=== PATIENT | male | born 1945 | race Two or more races ===

== ENCOUNTER 2016-07-26 08:00 | Inpatient (IN) | payer OTHER ==
[~2016-07-26] VITALS: Ht 165.1 cm; Wt 96.9 kg
[2016-07-26] VITALS (36 sets, daily range): BP systolic 107–168; BP diastolic 58–89; PULSE 48–90; RESP 10–21; Ht 165.1 cm; Wt 96.9 kg
[~2016-07-26 08:00] MED LIST: CEFAZOLIN 1 GM INJ ONE; ROCURONIUM 50 MG INJ ONE
[2016-07-26] MEDS ORDERED: ASPI81TA3 PO (09:18)
[2016-07-26] MEDS ORDERED: TRANEXAMIC ACID 1,000 MG in SOD CHLORIDE 0.9% 100 ML IV ONE (09:30)
[2016-07-26] MEDS ORDERED: METF500T4 PO (09:37)
[2016-07-26] MEDS ORDERED: BENA40TA41 PO (09:39)
[2016-07-26] MEDS ORDERED: HYD25 PO (09:39)
--- NOTE | 2016-07-26 10:31 | HPN ---
Date/Time of Note Date/Time of Note DATE: 07/26/16 TIME: 10:31 Interval H&P Admission Note Pt. seen H&P reviewed: No system changes KAYLEIGH MARTINEZ MD Jul 26, 2016 10:31
[2016-07-26] MEDS ORDERED: LIDOCAINE 2% (SDV) 5 ML INJ ONE (10:45)
[2016-07-26] MEDS ORDERED: PROPOFOL 20 ML ONE (10:45)
[2016-07-26] MEDS ORDERED: FENTAnyl 50 MCG/ML VIAL ONE (10:50)
[2016-07-26] MEDS ORDERED: MIDAZOLAM 1 MG/ML 2 ML INJ ONE (10:50)
[2016-07-26] MEDS ORDERED: POLYMYXIN/BACITRACIN 1L IRRIG IRR ONE (11:30)
[2016-07-26] MEDS ORDERED: NEOSTIGMINE 3 MG/3 ML SYRINGE ONE (13:25)
[2016-07-26] MEDS ORDERED: GLYCOPYRROLATE 0.4 MG INJ ONE (13:25)
[2016-07-26] MEDS: HYDROmorphONE 0.2 MG/ML PCA IV SCH ×2 (14:25→21:38)
[2016-07-26] MEDS ORDERED: KETOROLAC 30 MG INJ IV PRN (14:30)
[2016-07-26] MEDS: CEFAZOLIN 1 GM/50 ML (PMX) 50 ML IVPB SCH ×2 (14:30→22:44)
[2016-07-26] MEDS ORDERED: MEPERIDINE 25 MG INJ IV PRN (14:30)
[2016-07-26] MEDS ORDERED: HYDROmorphONE (0.2 MG/ML) 10ML SYG IV PRN ×3 (14:30)
[2016-07-26] MEDS ORDERED: KETOROLAC 15 MG INJ IV PRN (14:30)
[2016-07-26] MEDS ORDERED: NALOXONE (0.4 MG/ML) INJ IV PRN ×2 (14:30)
[2016-07-26] MEDS ORDERED: ONDANSETRON 4 MG INJ IV PRN (14:30)
[2016-07-26] MEDS ORDERED: LABETALOL HCL 20MG INJ IV PRN (14:30)
[2016-07-26] MEDS ORDERED: DIPHENHYDRAMINE 50 MG INJ IV PRN ×2 (14:30)
[2016-07-26] MEDS ORDERED: SENNA/DOCUSATE NA (8.6MG/50MG) TAB PO PRN (14:30)
[2016-07-26] MEDS ORDERED: hydrALAzine 20 MG INJ IV PRN (14:30)
[2016-07-26] MEDS ORDERED: ZOLPIDEM 5 MG TAB PO PRN (14:30)
[2016-07-26] MEDS ORDERED: INSULIN ASPART [NOVOLOG] 3 ML PEN SC ONE (14:30)
[2016-07-26] MEDS ORDERED: ASPIRIN (EC) 325 MG TAB PO ONE (14:30)
[2016-07-26] MEDS ORDERED: DOCUSATE SODIUM 100 MG CAP PO ONE (14:30)
[2016-07-26] MEDS ORDERED: OXYCODONE/ACETAMINOPHEN (5/325) TAB PO PRN ×2 (14:30)
[2016-07-26] MEDS ORDERED: FENTAnyl 50 MCG/ML VIAL IV PRN ×3 (14:30)
[2016-07-26] MEDS ORDERED: EPHEDrine SULFATE 50 MG/5 ML SYG IV PRN (14:30)
[2016-07-26] MEDS ORDERED: MAGNESIUM HYDROXIDE 30ML CUP PO PRN (14:30)
--- NOTE | 2016-07-26 14:43 | OPR ---
DATE OF OPERATION: 07/26/2016 PREOPERATIVE DIAGNOSIS: Right knee osteoarthritis. POSTOPERATIVE DIAGNOSIS: Right knee osteoarthritis. OPERATION PERFORMED: Right total knee replacement. SURGEON: Kody Garcia MD COMMERCIAL CONSTRUCTION PROJECT MANAGER: MARV Preston ANESTHESIA: General endotracheal anesthesia with spinal anesthetic and adductor canal block. ANESTHESIOLOGIST: Dr. Baker IMPLANTS USED: Howard Triathlon implants, femur size 4, tibia size 4, asymmetric patella size 38 m m and a 13-mm all poly insert. INDICATION FOR PROCEDURE: Mr. Reggie Dao is a 71-year-old male who has previously undergone a succe ssful left total knee replacement. He has continued to have pain in his right knee, has failed nono perative treatment, and now presents for elective right total knee replacement. Risks and benefits were discussed with the patient, the risks including, but not limited to, infecti on, bleeding, blood clots, fracture, nerve damage, blood vessel damage, knee stiffness, dislocation, along with other medical, anesthetic and surgical complications, were discussed. Informed consent was obtained. DESCRIPTION OF PROCEDURE: The patient's correct extremity was identified in the preoperative area. He was brought back to the operating room, where he had preoperative antibiotics and spinal anesthe tic. He then had general endotracheal anesthesia. The right lower extremity was prepped and draped in a standard sterile manner. A timeout was performed. Esmarch was used. A thigh tourniquet was inflated to 250 mmHg. I then made a standard midline incision for approach to the knee. I went thro ugh the skin and subcutaneous tissue and made a medial parapatellar arthrotomy, flexed the knee, mad e an entry hole in the distal femur and put in an intramedullary wilder. I made my distal femoral cut. I then used my secondary cutting guide and marked the rotation at 3 degrees of external rotation a nd made my anterior and posterior chamfer cuts. I then turned my attention to the tibia. I used a posterior PCL guide, along with right angle retrac tors. I then proceeded to make my tibial cut while protecting the medial, lateral and posterior str uctures. At this point I took out the remaining meniscus. I took out the posterior osteophytes. I did take out a medial osteophyte as well. I subperiosteally elevated the MCL off the proximal medi al tibia to balance the knee. I then had full range of motion using a 13 insert. I then turned my attention to the patella. Using an over the top cutting guide, I cut the pat ingrid to the appropriate thickness. I then sized the patella. I then made the peg holes for an asym metric 38 patella. The patella tracked well, without any external pressure. At this point I turned my attention to the femur. I made the peg holes through the femoral trial. I then punched the tibia. I then took out all trial instruments, thoroughly irrigated the bony surfa roni, dried them with a lap sponge. I then proceeded to cement a size 4 tibia, a size 4 femur, an as ymmetric 38 patellar and a trial insert was used until the cement hardened. After the cement harden ed, I let down the tourniquet to obtain adequate hemostasis, thoroughly irrigated the knee joint. I then impacted the all poly 13 insert until it locked into place. At this point, I put a deep drain in for drainage. I closed the medial parapatellar arthrotomy with interrupted #1 Vicryl. The subcu taneous tissue was closed with 2-0 Vicryl, the skin with tommy. The foot was warm, with a 2+ dors lawanda pedis pulse at the end of the case. The patient was then extubated and transported to the [facility] very in stable condition. Dictated By: KODY GARCIA MD, RA/FLORIAN Conf#: [id number] DID#: [id number]
--- NOTE | 2016-07-26 15:53 | RADRPT ---
PROCEDURE: XR right knee. CLINICAL INDICATION: Total knee replacement. TECHNIQUE: AP and lateral views are available for review. COMPARISON: No comparison available FINDINGS: There is a postoperative total knee replacement. There is no evidence of loosening of the prosthesis . There is no evidence of hardware failure. The osseous structures are normal in mineralization, arc hitecture and alignment No acute fracture or dislocation is seen.No osseous lesions are identified. There are postoperative soft tissue changes. [address] IMPRESSION: Unremarkable postoperative total knee replacement. Postoperative soft tissue changes RPTAT: HGDB .Jonn Price MD, Date Time Electronically viewed and signed by .Jonn Price MD, on 07/26/2016 15:52 .B/
[2016-07-26] MEDS: SOD CHLORIDE 0.9% 1,000 ML IV SCH (16:41)
[2016-07-26] MEDS: INSULIN ASPART [NOVOLOG] 3 ML PEN SC SCH ×2 (17:55→21:27)
[2016-07-26] MEDS ORDERED: Discontinue Glyburide, Glipizide, and/or Glimepiride prior to starting Insulin XX ONE (18:00)
[2016-07-26] MEDS ORDERED: GLUCAGON 1 MG INJ IM PRN (18:00)
[2016-07-26] MEDS ORDERED: HYPOGLYCEMIA PROTOCOL when Glucose is <70 mg/dL or symptomatic <90 mg/dL. XX ONE (18:00)
[2016-07-26] MEDS ORDERED: DEXTROSE 50% 50 ML SYRINGE IV PRN ×2 (18:00)
[2016-07-26] MEDS ORDERED: GLUCOSE GEL 15 GRAM TUBE PO PRN ×2 (18:00)
[2016-07-26] MEDS ORDERED: GLUCOSE GEL 15 GRAM TUBE BUCCAL PRN (18:00)
--- NOTE | 2016-07-26 18:56 | HP ---
DATE OF ADMISSION: 07/26/2016 CHIEF COMPLAINT AND HISTORY OF PRESENT ILLNESS: The patient is a 71-year-old gentleman with a histo ry of hypertension, diabetes, osteoarthritis bilateral knee joints who underwent left knee replaceme nt approximately 3 years ago which was done by Dr. Garcia. The patient has been following up wit h him for further care. The patient has been brought in to the hospital today for right total knee replacement. The patient is being admitted for further care. The patient denied any chest pain or shortness of breath. No reported recent fall. No reported fever or chills. No known history of co ronary artery disease. No history of vomiting or diarrhea. No history of dizziness or syncope. REVIEW OF SYSTEMS: Other than postoperative pain, the rest of review of systems were unremarkable. PAST SURGICAL HISTORY: As stated above, the patient is status post left total knee replacement appr oximately 3 years ago. SOCIAL HISTORY: No smoking, no alcohol. ALLERGIES: NONE. FAMILY HISTORY: Noncontributory. PHYSICAL EXAMINATION: GENERAL: The patient is conscious, awake, alert, fairly oriented. VITAL SIGNS: Temperature 98.2, pulse 69, respirations 18, blood pressure 138/78, O2 saturation 97% on 2 liters nasal cannula. HEENT: Atraumatic, normocephalic. Conjunctivae and lids normal. Oropharynx clear. NECK: Supple. No mass, no thyromegaly. CHEST: Fairly clear. CARDIOVASCULAR: S1, S2 normal. No murmur. ABDOMEN: Soft, nondistended, nontender. EXTREMITIES: No pedal edema. Pedal pulses palpable. SKIN: Without acute rash. NEUROLOGIC: The patient is awake, alert, fairly oriented. Detailed neurological examination was de ferred due to recent surgery. LABORATORY DATA: Random glucose 181. BUN 18, creatinine 1.2, sodium 142, potassium 4.6. AST 29, A LT 40, alkaline phosphatase 72. WBC 8.6, hemoglobin 14.9, platelets 233. Coagulation profile prior to admission was normal. Lipid panel revealed LDL of 92. Chest x-ray unremarkable. EKG normal sinus rhythm with no acute ST changes. IMPRESSION: 1. Right knee osteoarthritis, status post right total knee replacement. 2. History of left knee osteoarthritis, status post left total knee replacement 3 years ago. 3. Hypertension. PLAN: The patient admitted on medical floor. The patient will be started on 1800 calorie ADA and w e will start him on Glucophage and sliding scale insulin. The patient will also be started on Loten sin and hydrochlorothiazide. The patient is currently on IV Dilaudid CERTIFIED NURSE AIDE for pain control. For DVT prophylaxis, the patient will be started on aspirin. For GI prophylaxis, the patient will receive Protonix. Plan of care discussed with patient's family. The patient is requesting to go to halfway facility. Further recommendations will depend on patient's hospital course, and recommenda tions from Dr. Garcia. We will request SNF placement upon discharge. The patient stated that he used to be at [facility]. We will notify case management about his choice. We will continue to follow. Dictated By: ABEL RIOS/FLORIAN Conf#: [id number] DID#: [id number]
[2016-07-26] MEDS ORDERED: ONDANSETRON 4 MG INJ ONE (19:46)
[2016-07-26] MEDS ORDERED: ACCU-CHEK XX SCH (21:00)
[2016-07-27] MEDS: ACCU-CHEK XX SCH (02:00)
[2016-07-27] MEDS: SOD CHLORIDE 0.9% 1,000 ML IV SCH ×2 (03:13→17:17)
[2016-07-27 05:09] LABS: ADD SCAN DIFF NO
[2016-07-27 05:29] LABS: INR 1.12; PROTIME 14.4 Sec (12.2-14.2); PT RATIO 1.1
[2016-07-27 05:30] LABS: PARTIAL THROMBOPLASTIN TIME 35.4 Sec (25.0-35.0)
[2016-07-27 05:39] LABS: CALCIUM 9.3 mg/dl (8.4-10.2); CREATININE 1.21 mg/dl (0.61-1.24)
[2016-07-27 05:53] LABS: BASOPHILS % 0.2 % (0.0-2.0); EOSINOPHILS % 0.1 % (0.0-7.0); HEMATOCRIT 43.3 % (42.0-52.0); HEMOGLOBIN 13.9 g/dl (14.0-18.0); LYMPHOCYTES # 1.7 10^3/ul (0.8-2.9); LYMPHOCYTES % 12.7 % (15.0-51.0); MEAN CORPUSCULAR HEMOGLOBIN 27.1 pg (29.0-33.0); MEAN CORPUSCULAR HGB CONC 32.1 g/dl (32.0-37.0); MEAN CORPUSCULAR VOLUME 84.6 fl (82.0-101.0); MONOCYTES % 7.2 % (0.0-11.0); NEUTROPHIL # 10.8 10^3/ul (1.6-7.5); NEUTROPHILS % 79.4 % (39.0-77.0); PLATELET COUNT 243 10^3/UL (140-415); RED BLOOD COUNT 5.12 10^6/ul (4.70-6.10); RED CELL DISTRIBUTION WIDTH 13.5 % (11.5-14.5); WHITE BLOOD COUNT 13.5 10^3/ul (4.8-10.8)
[2016-07-27] MEDS: PANTOPRAZOLE (EC) 40 MG TAB PO SCH (06:16)
[2016-07-27] MEDS: CEFAZOLIN 1 GM/50 ML (PMX) 50 ML IVPB SCH (06:16)
[2016-07-27 08:10] VITALS: BP 124/69; RESP 20
[2016-07-27] MEDS: metFORMIN 500 MG TAB PO SCH ×2 (09:20→17:57)
[2016-07-27] MEDS: ASPIRIN (EC) 325 MG TAB PO SCH (09:20)
[2016-07-27] MEDS: BENAZEPRIL 40 MG TAB PO SCH (09:20)
[2016-07-27] MEDS: DOCUSATE SODIUM 100 MG CAP PO SCH ×2 (09:20→20:13)
[2016-07-27] MEDS: HYDROCHLOROTHIAZIDE 25 MG TAB PO SCH (09:21)
[2016-07-27] MEDS: INSULIN ASPART [NOVOLOG] 3 ML PEN SC SCH ×4 (09:31→20:12)
[2016-07-27] MEDS: HYDROmorphONE 0.2 MG/ML PCA IV SCH ×2 (11:37→21:31)
--- NOTE | 2016-07-27 11:56 | PN ---
Date/Time of Note Date/Time of Note DATE: 07/27/16 TIME: 11:54 Assessment/Plan VTE Prophylaxis VTE Prophylaxis Intervention: SCD's, other Lines/Catheters IV Catheter Type (from Nrsg): Peripheral IV Urinary Cath still in place: No Assessment/Plan Assessment/Plan s/p Right Total Knee Replacement POD 1 Stable CPM, Gait training with PT Aspirin, SCD's for DVT prophylaxis SNF eval D/c Lawson Change Dressing tomorrow Subjective 24 Hr Interval Summary Free Text/Dictation Mild pain. Exam/Review of Systems Vital Signs Vitals Vital Signs Date Time Temp Pulse Resp B/P Pulse Ox O2 Delivery O2 Flow Rate FiO2 07/27/16 08:10 98.7 81 20 124/69 97 07/26/16 22:45 Nasal Cannula 2.0 Intake and Output 07/26/16 07/26/16 07/27/16 14:59 22:59 06:59 Intake Total 1700 ml 360 ml 510 ml Output Total 550 ml 700 ml 1090 ml Balance 1150 ml -340 ml -580 ml Exam R Knee Dressing c/d/i. Calf soft and non tender Foot warm and well perfused Intact motor and sensory function Results Result Diagram: 07/27/16 0420 07/27/16 0420 Results 24 hrs Laboratory Tests Test 07/26/16 13:34 07/26/16 17:48 07/26/16 21:24 07/27/16 01:49 Bedside Glucose 128 181 233 H 169 Test 07/27/16 04:20 07/27/16 08:19 White Blood Count 13.5 H Red Blood Count 5.12 Hemoglobin 13.9 L Hematocrit 43.3 Mean Corpuscular Volume 84.6 Mean Corpuscular Hemoglobin 27.1 L Mean Corpuscular Hemoglobin Concent 32.1 Red Cell Distribution Width 13.5 Platelet Count 243 Mean Platelet Volume 11.0 H Neutrophils % 79.4 H Lymphocytes % 12.7 L Monocytes % 7.2 Eosinophils % 0.1 Basophils % 0.2 Nucleated Red Blood Cells % 0.0 Neutrophils # 10.8 H Lymphocytes # 1.7 Monocytes # 1.0 H Eosinophils # 0.0 Basophils # 0.0 Nucleated Red Blood Cells # 0.0 Prothrombin Time 14.4 H Prothrombin Time Ratio 1.1 INR International Normalized Ratio 1.12 Activated Partial Thromboplast Time 35.4 H Sodium Level 135 Potassium Level 4.0 Chloride Level 101 Carbon Dioxide Level 27 Anion Gap 11 Blood Urea Nitrogen 16 Creatinine 1.21 Glucose Level 156 Calcium Level 9.3 Bedside Glucose 172 Medications Medications Current Medications Sodium Chloride (NS) 1,000 ml @ 80 mls/hr [id number] IV Last administered on 07/27 03:13; Admin Dose 80 MLS/HR; Start 07/26/16 at 14:00 Oxycodone HCl (Roxicodone) 20 mg Q3H PRN PO PAIN LEVEL 8-10; Start 07/29/16 at 06:00 Oxycodone HCl (Roxicodone) 10 mg Q3H PRN PO PAIN LEVEL 4-7; Start 07/29/16 at 06:00 Oxycodone HCl (Roxicodone) 5 mg Q3H PRN PO PAIN LEVEL 1-3; Start 07/29/16 at 06 :00 Ondansetron HCl (Zofran Inj) 4 mg Q4H PRN IV NAUSEA AND/OR VOMITING Last administered on 07/26/16 19:48; Admin Dose 4 MG; Start 07/27/16 at 14:30 Aspirin (Ecotrin) 325 mg QAM PO Last administered on 07/27/16 09:20; Admin Dose 325 MG; Start 07/27/16 at 09:00 Pantoprazole (Protonix Tab) 40 mg DAILY@06 PO Last administered on 07/27/16 06 :16; Admin Dose 40 MG; Start 07/27/16 at 06:00 Docusate Sodium (Colace) 200 mg BID PO Last administered on 07/27/16 09:20; Admin Dose 200 MG; Start 07/27/16 at 09:00; Stop 07/30/16 at 08:59 Senna/Docusate Sodium (Senokot-S) 2 tab BID PRN PO CONSTIPATION; Start at 14:30 Magnesium Hydroxide (Milk Of Mag) 30 ml HS PRN PO CONSTIPATION; Start 07/26/16 at 14:30 Naloxone HCl (Narcan) 0.2 mg Q2M PRN IV DECREASED REPIRATORY RATE; Start at 14:30 Hydromorphone HCl (Dilaudid CENTRAL SUPPLY SUPERVISOR) Q4PCA IV Last administered on 07/27/16 11:37 ; Admin Dose 6 MG; Start 07/26/16 at 14:30; Stop 07/29/16 at 06:00 Oxycodone/ Acetaminophen (Percocet (5/ 325)) 1 tab Q4H PRN PO PAIN LEVEL 1-5; Start 07/26/16 at 14:30; Stop 07/29/16 at 07:00 Oxycodone/ Acetaminophen (Percocet (5/ 325)) 2 tab Q4H PRN PO PAIN LEVEL 6-10; Start 07/26/16 at 14:30; Stop 07/29/16 at 07:00 Ketorolac Tromethamine (Toradol) 30 mg Q6H PRN IV SEVERE PAIN; Start 07/26/16 at 14:30; Stop 07/29/16 at 14:29 Diphenhydramine HCl (Benadryl) 25 mg Q6H PRN IV ITCHING; Start 07/26/16 at 14: 30 Miscellaneous Information 1. Discontinue CENTRAL SUPPLY SUPERVISOR... CENTRAL SUPPLY SUPERVISOR IV ; Start 07/26/16 at 14:30 Miscellaneous Information 1. Discontinue CENTRAL SUPPLY SUPERVISOR... CENTRAL SUPPLY SUPERVISOR IV ; Start 07/26/16 at 14:30 Diagnostic Test (Pha) (Accu-Chek) 1 ea 02 XX ; Start 07/27/16 at 02:00 Miscellaneous Information 1 ea NOTE XX ; Start 07/26/16 at 18:00 Glucose (Glutose) 15 gm Q15M PRN PO DECREASED GLUCOSE; Start 07/26/16 at 18:00 Glucose (Glutose) 22.5 gm Q15M PRN PO DECREASED GLUCOSE; Start 07/26/16 at 18: 00 Dextrose (D50w Syringe) 25 ml Q15M PRN IV DECREASED GLUCOSE; Start 07/26/16 at 18:00 Dextrose (D50w Syringe) 50 ml Q15M PRN IV DECREASED GLUCOSE; Start 07/26/16 at 18:00 Glucagon (Glucagen) 1 mg Q15M PRN IM DECREASED GLUCOSE; Start 07/26/16 at 18:00 Glucose (Glutose) 15 gm Q15M PRN BUCCAL DECREASED GLUCOSE; Start 07/26/16 at 18 :00 Benazepril HCl (Lotensin) 40 mg DAILY PO Last administered on 07/27/16t 09:20; Admin Dose 40 MG; Start 07/27/16 at 09:00 Hydrochlorothiazide (Hydrochlorothiazide) 25 mg DAILY PO Last administered on t 09:21; Admin Dose 25 MG; Start 07/27/16 at 09:00 KAYLEIGH MARTINEZ MD Jul 27, 2016 11:56
[2016-07-27] MEDS ORDERED: ONDANSETRON 4 MG INJ IV PRN (14:30)
[2016-07-27 19:10] VITALS: BP 133/82; RESP 20
--- NOTE | 2016-07-27 20:44 | PN ---
Date/Time of Note Date/Time of Note DATE: 07/27/16 TIME: 17:21 Assessment/Plan Lines/Catheters IV Catheter Type (from Nrsg): Peripheral IV Urinary Cath still in place: No Assessment/Plan Assessment/Plan 1. Right knee osteoarthritis, status post right total knee replacement. - per ortho - pain control 2. History of left knee osteoarthritis, status post left total knee replacement 3 years ago. 3. Hypertension. JACOB De Guzman/staff Subjective 24 Hr Interval Summary Free Text/Dictation on dilaudid TAB CARD PRESS OPERATOR- pain is well controlled, HERSON dcd. afebrile, dw staff Cardiovascular: no complaints Gastrointestinal: no complaints Genitourinary: no complaints Musculoskeletal: bone/joint pain Exam/Review of Systems Vital Signs Vitals Vital Signs Date Time Temp Pulse Resp B/P Pulse Ox O2 Delivery O2 Flow Rate FiO2 07/27/16 08:10 98.7 81 20 124/69 97 07/26/16 22:45 Nasal Cannula 2.0 Intake and Output 07/26/16 07/26/16 07/27/16 15:00 23:00 07:00 Intake Total 1700 ml 360 ml 510 ml Output Total 550 ml 700 ml 1090 ml Balance 1150 ml -340 ml -580 ml Exam Constitutional: alert, well developed Respiratory: clear to auscultation, normal air movement Cardiovascular: nl pulses, regular rate and rhythm Gastrointestinal: non-tender, soft Musculoskeletal: other (sp right knee ORIF) Neurological: other Results Result Diagram: 07/27/16 0420 07/27/16 0420 Results 24 hrs Laboratory Tests Test 07/26/16 17:48 07/26/16 21:24 07/27/16 01:49 07/27/16 04:20 Bedside Glucose 181 233 H 169 White Blood Count 13.5 H Red Blood Count 5.12 Hemoglobin 13.9 L Hematocrit 43.3 Mean Corpuscular Volume 84.6 Mean Corpuscular Hemoglobin 27.1 L Mean Corpuscular Hemoglobin Concent 32.1 Red Cell Distribution Width 13.5 Platelet Count 243 Mean Platelet Volume 11.0 H Neutrophils % 79.4 H Lymphocytes % 12.7 L Monocytes % 7.2 Eosinophils % 0.1 Basophils % 0.2 Nucleated Red Blood Cells % 0.0 Neutrophils # 10.8 H Lymphocytes # 1.7 Monocytes # 1.0 H Eosinophils # 0.0 Basophils # 0.0 Nucleated Red Blood Cells # 0.0 Prothrombin Time 14.4 H Prothrombin Time Ratio 1.1 INR International Normalized Ratio 1.12 Activated Partial Thromboplast Time 35.4 H Sodium Level 135 Potassium Level 4.0 Chloride Level 101 Carbon Dioxide Level 27 Anion Gap 11 Blood Urea Nitrogen 16 Creatinine 1.21 Glucose Level 156 Calcium Level 9.3 Test 07/27/16 08:19 07/27/16 12:43 Bedside Glucose 172 154 Medications Medications Current Medications Sodium Chloride (NS) 1,000 ml @ 80 mls/hr [id number] IV Last administered on 07/27 17:17; Admin Dose 80 MLS/HR; Start 07/26/16 at 14:00 Oxycodone HCl (Roxicodone) 20 mg Q3H PRN PO PAIN LEVEL 8-10; Start 07/29/16 at 06:00 Oxycodone HCl (Roxicodone) 10 mg Q3H PRN PO PAIN LEVEL 4-7; Start 07/29/16 at 06:00 Oxycodone HCl (Roxicodone) 5 mg Q3H PRN PO PAIN LEVEL 1-3; Start 07/29/16 at 06 :00 Ondansetron HCl (Zofran Inj) 4 mg Q4H PRN IV NAUSEA AND/OR VOMITING Last administered on 07/26/16 19:48; Admin Dose 4 MG; Start 07/27/16 at 14:30 Aspirin (Ecotrin) 325 mg QAM PO Last administered on 07/27/16 09:20; Admin Dose 325 MG; Start 07/27/16 at 09:00 Pantoprazole (Protonix Tab) 40 mg DAILY@06 PO Last administered on 07/27/16 06 :16; Admin Dose 40 MG; Start 07/27/16 at 06:00 Docusate Sodium (Colace) 200 mg BID PO Last administered on 07/27/16 09:20; Admin Dose 200 MG; Start 07/27/16 at 09:00; Stop 07/30/16 at 08:59 Senna/Docusate Sodium (Senokot-S) 2 tab BID PRN PO CONSTIPATION; Start at 14:30 Magnesium Hydroxide (Milk Of Mag) 30 ml HS PRN PO CONSTIPATION; Start 07/26/16 at 14:30 Naloxone HCl (Narcan) 0.2 mg Q2M PRN IV DECREASED REPIRATORY RATE; Start at 14:30 Hydromorphone HCl (Dilaudid TAB CARD PRESS OPERATOR) Q4PCA IV Last administered on 07/27/16t 11:37 ; Admin Dose 6 MG; Start 07/26/16 at 14:30; Stop 07/29/16 at 06:00 Oxycodone/ Acetaminophen (Percocet (5/ 325)) 1 tab Q4H PRN PO PAIN LEVEL 1-5; Start 07/26/16 at 14:30; Stop 07/29/16 at 07:00 Oxycodone/ Acetaminophen (Percocet (5/ 325)) 2 tab Q4H PRN PO PAIN LEVEL 6-10; Start 07/26/16 at 14:30; Stop 07/29/16 at 07:00 Ketorolac Tromethamine (Toradol) 30 mg Q6H PRN IV SEVERE PAIN; Start 07/26/16 at 14:30; Stop 07/29/16 at 14:29 Diphenhydramine HCl (Benadryl) 25 mg Q6H PRN IV ITCHING; Start 07/26/16 at 14: 30 Miscellaneous Information 1. Discontinue TAB CARD PRESS OPERATOR... TAB CARD PRESS OPERATOR IV ; Start 07/26/16 at 14:30 Miscellaneous Information 1. Discontinue TAB CARD PRESS OPERATOR... TAB CARD PRESS OPERATOR IV ; Start 07/26/16 at 14:30 Diagnostic Test (Pha) (Accu-Chek) 1 ea 02 XX ; Start 07/27/16 at 02:00 Miscellaneous Information 1 ea NOTE XX ; Start 07/26/16 at 18:00 Glucose (Glutose) 15 gm Q15M PRN PO DECREASED GLUCOSE; Start 07/26/16 at 18:00 Glucose (Glutose) 22.5 gm Q15M PRN PO DECREASED GLUCOSE; Start 07/26/16 at 18: 00 Dextrose (D50w Syringe) 25 ml Q15M PRN IV DECREASED GLUCOSE; Start 07/26/16 at 18:00 Dextrose (D50w Syringe) 50 ml Q15M PRN IV DECREASED GLUCOSE; Start 07/26/16 at 18:00 Glucagon (Glucagen) 1 mg Q15M PRN IM DECREASED GLUCOSE; Start 07/26/16 at 18:00 Glucose (Glutose) 15 gm Q15M PRN BUCCAL DECREASED GLUCOSE; Start 07/26/16 at 18 :00 Benazepril HCl (Lotensin) 40 mg DAILY PO Last administered on 07/27/16 09:20; Admin Dose 40 MG; Start 07/27/16 at 09:00 Hydrochlorothiazide (Hydrochlorothiazide) 25 mg DAILY PO Last administered on 09:21; Admin Dose 25 MG; Start 07/27/16 at 09:00 MORENO KOEHLER Jul 27, 2016 17:25
[2016-07-28] MEDS: ACCU-CHEK XX SCH (01:31)
[2016-07-28] MEDS: SOD CHLORIDE 0.9% 1,000 ML IV SCH ×3 (03:30→20:16)
[2016-07-28 05:08] LABS: ADD SCAN DIFF NO
[2016-07-28 05:16] LABS: BASOPHIL # 0.1 10^3/ul (0.0-0.1); BASOPHILS % 0.5 % (0.0-2.0); EOSINOPHILS # 0.1 10^3/ul (0.0-0.5); EOSINOPHILS % 0.5 % (0.0-7.0); HEMATOCRIT 42.7 % (42.0-52.0); HEMOGLOBIN 13.6 g/dl (14.0-18.0); LYMPHOCYTES # 1.8 10^3/ul (0.8-2.9); LYMPHOCYTES % 13.9 % (15.0-51.0); MEAN CORPUSCULAR HEMOGLOBIN 26.9 pg (29.0-33.0); MEAN CORPUSCULAR HGB CONC 31.9 g/dl (32.0-37.0); MEAN CORPUSCULAR VOLUME 84.4 fl (82.0-101.0); MEAN PLATELET VOLUME 10.8 fl (7.4-10.4); MONOCYTE # 1.3 10^3/ul (0.3-0.9); MONOCYTES % 9.9 % (0.0-11.0); NEUTROPHIL # 9.5 10^3/ul (1.6-7.5); NEUTROPHILS % 74.8 % (39.0-77.0); PLATELET COUNT 241 10^3/UL (140-415); RED BLOOD COUNT 5.06 10^6/ul (4.70-6.10); RED CELL DISTRIBUTION WIDTH 13.7 % (11.5-14.5); WHITE BLOOD COUNT 12.7 10^3/ul (4.8-10.8)
[2016-07-28] MEDS: PANTOPRAZOLE (EC) 40 MG TAB PO SCH (05:31)
[2016-07-28 07:17] LABS: CALCIUM 9.4 mg/dl (8.4-10.2); CREATININE 1.4 mg/dl (0.61-1.24); POTASSIUM 3.7 mmol/L (3.5-5.1)
[2016-07-28 08:37] VITALS: BP 129/79; RESP 20
[2016-07-28] MEDS: metFORMIN 500 MG TAB PO SCH ×2 (08:52→17:38)
[2016-07-28] MEDS: INSULIN ASPART [NOVOLOG] 3 ML PEN SC SCH ×4 (08:52→21:00)
[2016-07-28] MEDS: ASPIRIN (EC) 325 MG TAB PO SCH (08:52)
[2016-07-28] MEDS: DOCUSATE SODIUM 100 MG CAP PO SCH ×2 (08:52→20:11)
[2016-07-28] MEDS: BENAZEPRIL 40 MG TAB PO SCH (08:53)
[2016-07-28] MEDS: HYDROCHLOROTHIAZIDE 25 MG TAB PO SCH (08:53)
[2016-07-28] MEDS: HYDROmorphONE 0.2 MG/ML PCA IV SCH (12:07)
--- NOTE | 2016-07-28 16:28 | PN ---
Date/Time of Note Date/Time of Note DATE: 07/28/16 TIME: 16:27 Assessment/Plan Lines/Catheters IV Catheter Type (from Nrs): Peripheral IV Urinary Cath still in place: No Assessment/Plan Assessment/Plan 1. Right knee osteoarthritis, status post right total knee replacement. - per ortho - pain control 2. History of left knee osteoarthritis, status post left total knee replacement 3 years ago. 3. Hypertension. JACOB De Guzman/staff Exam/Review of Systems Vital Signs Vitals Vital Signs Date Time Temp Pulse Resp B/P Pulse Ox O2 Delivery O2 Flow Rate FiO2 07/28/16 13:00 16 07/28/16 08:37 98.5 104 129/79 100 07/26/16 22:45 Nasal Cannula 2.0 Intake and Output 07/27/16 07/27/16 07/28/16 15:00 23:00 07:00 Intake Total 1880 ml 1090 ml Output Total 50 ml 1020 ml 600 ml Balance -50 ml 860 ml 490 ml Exam Constitutional: alert, oriented, well developed Eyes: EOMI Respiratory: clear to auscultation, normal air movement Cardiovascular: nl pulses, regular rate and rhythm Gastrointestinal: non-tender, soft Musculoskeletal: other Extremities: normal pulses Neurological: nl mental status, nl speech Results Result Diagram: 07/28/1642607/28/16426 Results 24 hrs Laboratory Tests Test 07/27/16 20:11 07/28/16 04:27 07/28/16 08:33 07/28/16 09:14 Bedside Glucose 170 149 138 White Blood Count 12.7 H Red Blood Count 5.06 Hemoglobin 13.6 L Hematocrit 42.7 Mean Corpuscular Volume 84.4 Mean Corpuscular Hemoglobin 26.9 L Mean Corpuscular Hemoglobin Concent 31.9 L Red Cell Distribution Width 13.7 Platelet Count 241 Mean Platelet Volume 10.8 H Neutrophils % 74.8 Lymphocytes % 13.9 L Monocytes % 9.9 Eosinophils % 0.5 Basophils % 0.5 Nucleated Red Blood Cells % 0.0 Neutrophils # 9.5 H Lymphocytes # 1.8 Monocytes # 1.3 H Eosinophils # 0.1 Basophils # 0.1 Nucleated Red Blood Cells # 0.0 Sodium Level 135 Potassium Level 3.7 Chloride Level 98 Carbon Dioxide Level 27 Anion Gap 14 Blood Urea Nitrogen 15 Creatinine 1.40 H Glucose Level 142 Calcium Level 9.4 Test 07/28/16 12:44 Bedside Glucose 171 Medications Medications Current Medications Sodium Chloride (NS) 1,000 ml @ 80 mls/hr [id number] IV Last administered on 07/27 17:17; Admin Dose 80 MLS/HR; Start 07/26/16 at 14:00 Oxycodone HCl (Roxicodone) 20 mg Q3H PRN PO PAIN LEVEL 8-10; Start 07/29/16 at 06:00 Oxycodone HCl (Roxicodone) 10 mg Q3H PRN PO PAIN LEVEL 4-7; Start 07/29/16 at 06:00 Oxycodone HCl (Roxicodone) 5 mg Q3H PRN PO PAIN LEVEL 1-3; Start 07/29/16 at 06 :00 Ondansetron HCl (Zofran Inj) 4 mg Q4H PRN IV NAUSEA AND/OR VOMITING Last administered on 07/26/16 19:48; Admin Dose 4 MG; Start 07/27/16 at 14:30 Aspirin (Ecotrin) 325 mg QAM PO Last administered on 07/28/16 08:52; Admin Dose 325 MG; Start 07/27/16 at 09:00 Pantoprazole (Protonix Tab) 40 mg DAILY@06 PO Last administered on 07/28/16 05 :31; Admin Dose 40 MG; Start 07/27/16 at 06:00 Docusate Sodium (Colace) 200 mg BID PO Last administered on 07/28/16 08:52; Admin Dose 200 MG; Start 07/27/16 at 09:00; Stop 07/30/16 at 08:59 Senna/Docusate Sodium (Senokot-S) 2 tab BID PRN PO CONSTIPATION; Start at 14:30 Magnesium Hydroxide (Milk Of Mag) 30 ml HS PRN PO CONSTIPATION; Start 07/26/16 at 14:30 Naloxone HCl (Narcan) 0.2 mg Q2M PRN IV DECREASED REPIRATORY RATE; Start at 14:30 Hydromorphone HCl (Dilaudid SOIL EXPERT) Q4PCA IV Last administered on 07/28/16 12:07 ; Admin Dose 6 MG; Start 07/26/16 at 14:30; Stop 07/29/16 at 06:00 Oxycodone/ Acetaminophen (Percocet (5/ 325)) 1 tab Q4H PRN PO PAIN LEVEL 1-5; Start 07/26/16 at 14:30; Stop 07/29/16 at 07:00 Oxycodone/ Acetaminophen (Percocet (5/ 325)) 2 tab Q4H PRN PO PAIN LEVEL 6-10; Start 07/26/16 at 14:30; Stop 07/29/16 at 07:00 Diphenhydramine HCl (Benadryl) 25 mg Q6H PRN IV ITCHING; Start 07/26/16 at 14: 30 Miscellaneous Information 1. Discontinue SOIL EXPERT... SOIL EXPERT IV ; Start 07/26/16 at 14:30 Miscellaneous Information 1. Discontinue SOIL EXPERT... SOIL EXPERT IV ; Start 07/26/16 at 14:30 Diagnostic Test (Pha) (Accu-Chek) 1 ea 02 XX ; Start 07/27/16 at 02:00 Miscellaneous Information 1 ea NOTE XX ; Start 07/26/16 at 18:00 Glucose (Glutose) 15 gm Q15M PRN PO DECREASED GLUCOSE; Start 07/26/16 at 18:00 Glucose (Glutose) 22.5 gm Q15M PRN PO DECREASED GLUCOSE; Start 07/26/16 at 18: 00 Dextrose (D50w Syringe) 25 ml Q15M PRN IV DECREASED GLUCOSE; Start 07/26/16 at 18:00 Dextrose (D50w Syringe) 50 ml Q15M PRN IV DECREASED GLUCOSE; Start 07/26/16 at 18:00 Glucagon (Glucagen) 1 mg Q15M PRN IM DECREASED GLUCOSE; Start 07/26/16 at 18:00 Glucose (Glutose) 15 gm Q15M PRN BUCCAL DECREASED GLUCOSE; Start 07/26/16 at 18 :00 Benazepril HCl (Lotensin) 40 mg DAILY PO Last administered on 07/28/16t 08:53; Admin Dose 40 MG; Start 07/27/16 at 09:00 MORENO KOEHLER Jul 28, 2016 16:28
[2016-07-28 19:25] VITALS: BP 145/91; RESP 20
[2016-07-28 20:30] VITALS: BP 137/82; PULSE 95
[2016-07-29] MEDS: ACCU-CHEK XX SCH (02:00)
[2016-07-29] MEDS: HYDROmorphONE 0.2 MG/ML PCA IV SCH (03:17)
[2016-07-29 05:02] LABS: ADD SCAN DIFF NO
[2016-07-29 05:08] LABS: BASOPHIL # 0.1 10^3/ul (0.0-0.1); BASOPHILS % 0.4 % (0.0-2.0); EOSINOPHILS # 0.1 10^3/ul (0.0-0.5); EOSINOPHILS % 1.1 % (0.0-7.0); HEMATOCRIT 42.2 % (42.0-52.0); HEMOGLOBIN 13.4 g/dl (14.0-18.0); LYMPHOCYTES # 1.8 10^3/ul (0.8-2.9); LYMPHOCYTES % 14.9 % (15.0-51.0); MEAN CORPUSCULAR HEMOGLOBIN 26.9 pg (29.0-33.0); MEAN CORPUSCULAR HGB CONC 31.8 g/dl (32.0-37.0); MEAN CORPUSCULAR VOLUME 84.7 fl (82.0-101.0); MEAN PLATELET VOLUME 10.7 fl (7.4-10.4); MONOCYTE # 1.1 10^3/ul (0.3-0.9); MONOCYTES % 8.7 % (0.0-11.0); NEUTROPHIL # 9.2 10^3/ul (1.6-7.5); NEUTROPHILS % 74.6 % (39.0-77.0); PLATELET COUNT 243 10^3/UL (140-415); RED BLOOD COUNT 4.98 10^6/ul (4.70-6.10); RED CELL DISTRIBUTION WIDTH 13.6 % (11.5-14.5); WHITE BLOOD COUNT 12.3 10^3/ul (4.8-10.8)
[2016-07-29] MEDS: PANTOPRAZOLE (EC) 40 MG TAB PO SCH (05:30)
[2016-07-29 05:37] LABS: CALCIUM 9.8 mg/dl (8.4-10.2); CREATININE 1.19 mg/dl (0.61-1.24); POTASSIUM 3.8 mmol/L (3.5-5.1)
[2016-07-29] MEDS ORDERED: oxyCODONE 5 MG TAB PO PRN ×2 (06:00)
[2016-07-29] MEDS: INSULIN ASPART [NOVOLOG] 3 ML PEN SC SCH ×3 (07:38→17:28)
[2016-07-29] MEDS: metFORMIN 500 MG TAB PO SCH ×2 (07:39→17:31)
[2016-07-29] MEDS: ASPIRIN (EC) 325 MG TAB PO SCH (08:11)
[2016-07-29] MEDS: BENAZEPRIL 40 MG TAB PO SCH (08:11)
[2016-07-29] MEDS: DOCUSATE SODIUM 100 MG CAP PO SCH (08:12)
[2016-07-29 08:37] VITALS: BP 145/81; RESP 20
[2016-07-29] MEDS: oxyCODONE 5 MG TAB PO PRN ×3 (09:50→19:44)
--- NOTE | 2016-07-29 10:41 | PN ---
Date/Time of Note Date/Time of Note DATE: 07/29/16 TIME: 10:39 Assessment/Plan Lines/Catheters IV Catheter Type (from Nrsg): Peripheral IV Lawson in Place (from Nrsg): No Assessment/Plan Assessment/Plan Doing well CPM, gait training with PT Aspirin, SCD's for DVT prophylaxis Discharge to home today Subjective 24 Hr Interval Summary Ambulated with PT. Pain is improved. Exam/Review of Systems Vital Signs Vitals Vital Signs Date Time Temp Pulse Resp B/P Pulse Ox O2 Delivery O2 Flow Rate FiO2 07/29/16 08:37 98.3 95 20 145/81 96 07/26/16 22:45 Nasal Cannula 2.0 Intake and Output 07/28/16 07/28/16 07/29/16 15:00 23:00 07:00 Intake Total 1190 ml 1280 ml Output Total 1000 ml 1100 ml Balance 190 ml 180 ml Exam Free Text/Dictation R LE Dressing c/d/i Calf soft and non tender Intact motor and sensory function in toes Results Result Diagram: 07/29/16 0430 07/29/16 0430 KAYLEIGH MARTINEZ MD Jul 29, 2016 10:41
--- NOTE | 2016-07-29 10:44 | PDOCDIS ---
Discharge Instructions CONDITION Patient Condition: Good HOME CARE INSTRUCTIONS: Diet Instructions: RegularSpecial Diet: 1800 ADA ACTIVITY: Bathing Restrictions: Sponge Bath FOLLOW UP/APPOINTMENTS Appointments Dr. Martinez in 2 weeks OTHER ORDERS: Other Orders: 1. Aspirin 325 mg po qday for 2 weeks KAYLEIGH MARTINEZ MD Jul 29, 2016 10:44
--- NOTE | 2016-07-29 16:21 | PN ---
Date/Time of Note Date/Time of Note DATE: 07/29/16 TIME: 16:18 Assessment/Plan VTE Prophylaxis VTE Prophylaxis Intervention: SCD's Lines/Catheters IV Catheter Type (from Nrs): Sal[place] Lock Urinary Cath still in place: No Assessment/Plan Chief Complaint/Hosp Course Patient continues to have significant pain with mobility, case management for alf facility placement. Problems: Assessment/Plan 1. Right knee osteoarthritis, status post right total knee replacement. Continue aspirin, pain medication, physical therapy. 2. History of left knee osteoarthritis, status post left total knee replacement 3 years ago. 3. Hypertension. Further Recommendations based on clinical course. Plan of care discussed with Dr. De Guzman. Exam/Review of Systems Vital Signs Vitals Vital Signs Date Time Temp Pulse Resp B/P Pulse Ox O2 Delivery O2 Flow Rate FiO2 07/29/16 08:37 98.3 95 20 145/81 96 07/26/16 22:45 Nasal Cannula 2.0 Intake and Output 07/28/16 07/28/16 07/29/16 15:00 23:00 07:00 Intake Total 1190 ml 1280 ml Output Total 1000 ml 1100 ml Balance 190 ml 180 ml Exam Constitutional: alert Head: normocephalic Neck: supple Respiratory: normal air movement Cardiovascular: nl pulses Gastrointestinal: non-tender, soft Musculoskeletal: other (Right knee status post surgery) Extremities: normal pulses Results Result Diagram: 07/29/16 0430 07/29/16 0430 Results 24 hrs Laboratory Tests Test 07/28/16 17:37 07/28/16 20:13 07/29/16 04:30 07/29/16 06:03 Bedside Glucose 143 171 White Blood Count 12.3 H Red Blood Count 4.98 Hemoglobin 13.4 L Hematocrit 42.2 Mean Corpuscular Volume 84.7 Mean Corpuscular Hemoglobin 26.9 L Mean Corpuscular Hemoglobin Concent 31.8 L Red Cell Distribution Width 13.6 Platelet Count 243 Mean Platelet Volume 10.7 H Neutrophils % 74.6 Lymphocytes % 14.9 L Monocytes % 8.7 Eosinophils % 1.1 Basophils % 0.4 Nucleated Red Blood Cells % 0.0 Neutrophils # 9.2 H Lymphocytes # 1.8 Monocytes # 1.1 H Eosinophils # 0.1 Basophils # 0.1 Nucleated Red Blood Cells # 0.0 Sodium Level 136 Potassium Level 3.8 Chloride Level 98 Carbon Dioxide Level 29 Anion Gap 13 Blood Urea Nitrogen 14 Creatinine 1.19 Glucose Level 160 Calcium Level 9.8 Lab Scanned Report REFERENCE LAB Test 07/29/16 07:34 07/29/16 12:09 Bedside Glucose 157 134 Medications Medications Current Medications Oxycodone HCl (Roxicodone) 20 mg Q3H PRN PO PAIN LEVEL 8-10 Last administered on 07/29/16 09:50; Admin Dose 20 MG; Start 07/29/16 at 06:00 Oxycodone HCl (Roxicodone) 10 mg Q3H PRN PO PAIN LEVEL 4-7; Start 07/29/16 at 06:00 Oxycodone HCl (Roxicodone) 5 mg Q3H PRN PO PAIN LEVEL 1-3; Start 07/29/16 at 06 :00 Ondansetron HCl (Zofran Inj) 4 mg Q4H PRN IV NAUSEA AND/OR VOMITING Last administered on 07/26/16 19:48; Admin Dose 4 MG; Start 07/27/16 at 14:30 Aspirin (Ecotrin) 325 mg QAM PO Last administered on 07/29/16 08:11; Admin Dose 325 MG; Start 07/27/16 at 09:00 Pantoprazole (Protonix Tab) 40 mg DAILY@06 PO Last administered on 07/29/16 05 :30; Admin Dose 40 MG; Start 07/27/16 at 06:00 Docusate Sodium (Colace) 200 mg BID PO Last administered on 07/29/16 08:12; Admin Dose 200 MG; Start 07/27/16 at 09:00; Stop 07/30/16 at 08:59 Senna/Docusate Sodium (Senokot-S) 2 tab BID PRN PO CONSTIPATION; Start at 14:30 Magnesium Hydroxide (Milk Of Mag) 30 ml HS PRN PO CONSTIPATION; Start 07/26/16 at 14:30 Naloxone HCl (Narcan) 0.2 mg Q2M PRN IV DECREASED REPIRATORY RATE; Start at 14:30 Diphenhydramine HCl (Benadryl) 25 mg Q6H PRN IV ITCHING; Start 07/26/16 at 14: 30 Miscellaneous Information 1. Discontinue TREASURY REPRESENTATIVE... TREASURY REPRESENTATIVE IV ; Start 07/26/16 at 14:30 Miscellaneous Information 1. Discontinue TREASURY REPRESENTATIVE... TREASURY REPRESENTATIVE IV ; Start 07/26/16 at 14:30 Diagnostic Test (Pha) (Accu-Chek) 1 ea 02 XX ; Start 07/27/16 at 02:00 Miscellaneous Information 1 ea NOTE XX ; Start 07/26/16 at 18:00 Glucose (Glutose) 15 gm Q15M PRN PO DECREASED GLUCOSE; Start 07/26/16 at 18:00 Glucose (Glutose) 22.5 gm Q15M PRN PO DECREASED GLUCOSE; Start 07/26/16 at 18: 00 Dextrose (D50w Syringe) 25 ml Q15M PRN IV DECREASED GLUCOSE; Start 07/26/16 at 18:00 Dextrose (D50w Syringe) 50 ml Q15M PRN IV DECREASED GLUCOSE; Start 07/26/16 at 18:00 Glucagon (Glucagen) 1 mg Q15M PRN IM DECREASED GLUCOSE; Start 07/26/16 at 18:00 Glucose (Glutose) 15 gm Q15M PRN BUCCAL DECREASED GLUCOSE; Start 07/26/16 at 18 :00 Benazepril HCl (Lotensin) 40 mg DAILY PO Last administered on 07/29/16t 08:11; Admin Dose 40 MG; Start 07/27/16 at 09:00 PAT GUTHRIE Jul 29, 2016 16:21
[2016-07-29 19:02] VITALS: BP 135/85; RESP 18
--- NOTE | 2016-07-30 04:15 | DS ---
DATE OF ADMISSION: 07/26/2016 DATE OF DISCHARGE: 07/29/2016 FINAL DIAGNOSES: 1. Right knee osteoarthritis status post right total knee replacement. 2. History of left knee osteoarthritis status post left total knee replacement 3 years ago. 3. Hypertension. 4. Diabetes. BRIEF HISTORY: The patient is a 71-year-old gentleman with history of hypertension, diabetes, osteo arthritis of bilateral knee joints. The patient has status post left knee replacement approximately [address] Garcia. The patient was brought to the hospital and underwent a right total knee replacement by Dr. Garcia for right knee osteoarthritis. HOSPITAL COURSE: The patient was given aspirin and Percocet for pain. The patient's blood sugar wa s closely monitored and was well controlled with metformin and NovoLog. The patient was also contin ued on Lotensin for hypertension. The patient's condition improved but the patient still had signif icant amount of pain with mobility and per physical therapy was recommended to the patient to contin ue home health physical therapy and it was decided for patient to continue management and care at [facility]. The patient will be discharged to [facility] nursing [facility]. CONDITION ON DISCHARGE: Clinically stable. ACTIVITY: As patient tolerates. DIET: 1800 ADA 2 g sodium diet. MEDICATIONS ON DISCHARGE: 1. Aspirin 325 mg p.o. daily for 2 weeks. 2. Lotensin 40 mg p.o. daily. 3. Senna b.i.d. 4. Colace b.i.d. 5. NovoLog per moderate algorithm sliding scale before every meal and at bedtime. 6. Milk of magnesia p.r.n. for constipation. 7. Metformin 500 mg p.o. b.i.d. with meals, hypoglycemia protocol. 8. Roxicodone 20 mg for severe pain, 10 mg for moderate pain and 5 mg for mild pain q.3 hours p.r.n . 9. Protonix daily. 10. Ambien p.r.n. for insomnia. Interdisciplinary plan of care was established for this patient. Plan of care was discussed with Dr Sandip Crawley. Dictated By: PAT GUTHRIE DIALYSIS NURSE for ABEL CRAWLEY MD SR/NTS Conf#: [id number] DID#: [id number]
== END 2016-07-29 20:00 | DRG 470 ==
LOC: REC 08:05 → MS1 15:40
PROVIDERS: ADMIT Specialist; ATTEND Specialist
PROC: 0SRC0J9 Replacement of Right Knee Joint with Synthetic Substitute, Cemented, Open Approach (ICD-10-PCS; principal; 2016-07-26 11:30)
DX: M17.11 Unilateral primary osteoarthritis, right knee (principal); I10 Essential (primary) hypertension; Z96.652 Presence of left artificial knee joint; E11.9 Type 2 diabetes mellitus without complications
CPT/HCPCS: 73560; 80048; 82962; 85025; 85610; 85730; 88304; 88305; 88311; 97110; 97116; 97163; 97530; C1713; J0690; J1170; J1815; J2250; J2405; J2710; J3010; J7030